=== PATIENT | male | born 1960 | race Caucasian/White ===

== ENCOUNTER 2017-03-10 12:38 | Day surgery (SDC) | payer OTHER ==
[~2017-03-10 12:38] MED LIST: Buffered Lidocaine 0.9% SYRIN* 5 ML/SYR SYRINGE INTRADERM ONE; Buffered Lidocaine 0.9% SYRIN* 5 ML/SYR SYRINGE ONE; Famotidine IV* 10 MG/ML 2 ML (20 mg) IV ONE; Famotidine IV* 10 MG/ML 2 ML (20 mg) ONE; Morphine INJ* 2 MG/ML 1 ML SYRINGE IV PRN; PROCHLORPERAZINE INJ 5 MG/ML 2 ML VIAL IV PRN; ceFAZolin 2 GM PREMIX(*) 2 GM/50 ML BAG IVPB ONE; fentaNYL* 50 MCG/ML 2 ML VIAL (100 MCG VIAL) IV PRN; oxyCODONE/Acetamin 5/325 MG* TAB PO PRN
[2017-03-10] MEDS ORDERED: KETAMINE HCL* 50 MG/ML 10 ML VIAL ONE ×2 (14:26→14:51)
[2017-03-10] MEDS ORDERED: fentaNYL* 50 MCG/ML 2 ML VIAL (100 MCG VIAL) ONE (14:26)
[2017-03-10] MEDS ORDERED: Midazolam* 1 MG/ML 5 ML VIAL (5 MG) ONE (14:27)
[2017-03-10] MEDS ORDERED: Bupivacaine 0.25% EPI 200,000* 30 ML SDV ONE (15:10)
[2017-03-10] MEDS ORDERED: Lidocaine 1% INJ* 10 MG/ML 30 ML SDV ONE (15:18)
[2017-03-10] MEDS ORDERED: Bupivacaine 0.5% W/EPI SDV* 10 ML VIAL INJ ONE (15:37)
[2017-03-10] MEDS ORDERED: Propofol* 10 MG/ML 20 ML BTL IV PUSH ONE (16:08)
[2017-03-10] MEDS ORDERED: Ketorolac INJ* 30 MG/ML 1 ML VIAL ONE (16:08)
[2017-03-10] MEDS ORDERED: Lidocaine 2% PF * 5 ML VIAL ONE (16:08)
--- NOTE | 2017-03-10 16:13 | SURGPN ---
Brief Operative Note - Surgery Procedures: Procedures OPERATIVE REPORT PRE-OP: Chronic pilonidal disease POST-OP: Same PROCEDURE: Incision and debridement of chronic pilonidal disease with placement of drains SURGEON: MD Jessi ANESTHESIA:Local with [facility] [place] ASST: ROBE Bain Student IVF: min EBL: min SPECIMEN: none DRAIN: none WOUND CLASS:4 COMPLICATIONS: none TO PACU
[2017-03-10 17:44] VITALS: BP 132/84
--- NOTE | 2017-03-11 06:28 | OP ---
CC: [facility] OPERATIVE REPORT: DATE OF OPERATION: 03/10/17 DATE OF : 64 SURGEON: Jordy Bowen MD ANESTHESIOLOGIST: Dr. Jackson. ANESTHESIA: Local with monitored anesthesia care. PRE-OP DIAGNOSIS: Chronic pilonidal disease. POST-OP DIAGNOSIS: Chronic pilonidal disease. OPERATIVE PROCEDURE: Excision and debridement of chronic pilonidal disease with drain placement. ESTIMATED BLOOD LOSS: Minimal. SPECIMENS: None. COMPLICATIONS: None. WOUND CLASSIFICATION: 3. BRIEF HISTORY: Mr. Jeronimo Kc is a 57-year-old gentleman with a history of mild tubular sclerosis who has had what appears to be pilonidal disease since a teenager. He has had intermittent drainages draining sinuses and abscesses, which he has treated himself. He has become more frustrated with his persistent symptoms and on exam, appears to have chronic pilonidal disease with midline pits in several sinus tracts extending to the left, right, and midline which persistently drained. At this point, discussion was had of possible more extensive excision of his pilonidal disease and he would like to try to avoid this at this point due to its prolonged recovery times. Today, we are going to take him to the operating room for an exam and identify the subcutaneous tracts and drain any abscesses and possibly place a drain and assess the extent of disease for consideration of more extensive surgery. The procedure was discussed with him and the risks were outlined in the preoperatively transcribed history and physical. DESCRIPTION OF PROCEDURE: Written informed consent was obtained and antibiotics were administered. The patient was taken to the operating room, placed in the prone position. Anesthesia was administered. The buttocks and lower back were prepped and draped in usual sterile fashion. Time-out verification was completed. On exam, there were several midline pits with some extremely scarring and induration and large midline pits in the lower cleft. There was a single sinus tract opening to the left of midline and a second one more right and inferiorly extending down towards the anus. When probing, these extended back to the midline through extensively scarred tissue. I did not appreciate any abscess nor there were any induration or was there any redness. However, the area was indurated and quite scarred. 0.25% Marcaine mixed with 1% lidocaine was infiltrated extensively in the area. We then used some hydrogen peroxide to inject into the midline pits and they did indeed collect with the sinus tracts. At this point, the extent of trying to excise this completely was decided not to proceed as we had discussed preoperatively. We then made a decision to pass blue vessel loops through the sinus tracts to the midline pits. These were sutured to create loops that will keep the tracts the open and prevent further infection until a more satisfactory surgical procedure can be discussed. Once this was done after placing 3 loops, the area was cleaned. Pressure dressing was applied. The patient tolerated the procedure well, was taken to the recovery room in stable condition. [id number]/[facility] #: [id number] ANGELA
== END 2017-03-10 17:44 | disposition home or self-care (01) ==
LOC: OR 12:38
PROVIDERS: ATTEND Surgery
DX: L05.91 Pilonidal cyst without abscess (principal); Z87.891 Personal history of nicotine dependence; G35 Multiple sclerosis
CPT/HCPCS: J0690; J1885; J2001; J2250; J2704; J3010

== ENCOUNTER 2019-10-24 08:37 | Emergency (ER) | payer BC ==
[2019-10-24 10:04] VITALS: BP 132/82
--- NOTE | 2019-10-24 10:15 | ED ---
Upper Extremity Pain - HPI Summary HPI Summary: Patient presents to the ED after falling off a ladder 5ft tall and landing over his left arm. Endorsing pain to the L elbow without bruising or swelling or other signs of trauma. Denies pain to the shoulder or the hand. Has been able to flex and extend at the elbow just prior to arrival and states his pain has been improving and his mobility has been improving since the fall. Denies numbness or tingling. He continues to endorse pain directly over the posterior upper arm and forearm. No cold feeling, discoloration. Pain is rated 2/10, took 2 ibuprofen prior to arrival. Denies hitting his head or other injuries. Ambulating well. Denies any other pain or concerns. - History of Current Complaint Chief Complaint: EDExtremityUpper Stated Complaint: FELL YESTERDAY/ARM INJURY PER PT Time Seen by Provider: 10/24/19 08:46 Hx Obtained From: Patient Mechanism Of Injury: Direct Blow Onset/Duration: Started Minutes Ago Timing: Constant Severity Initially: Mild Severity Currently: Mild Pain Location: Elbow Character: Aching Aggravating Factor(s): Movement, Lifting, Flexion, Extension Alleviating Factor(s): Rest Associated Signs & Symptoms: Negative: Swelling, Redness, Bruising, Numbness/ Tingling, Neck Pain, Diaphoresis, Nausea, Vomiting - Risk Factors Non-Orthopedic Risk Factor: Negative DVT Risk Factors: Negative Septic Arthritis Risk Factor: Negative Compartment Syndrome Risk Factors: Pain - Allergies/Home Medications Allergies/Adverse Reactions: Allergies Allergy/AdvReac Type Severity Reaction Status Date / Time No Known Allergies Allergy Verified 10/24/19 08:42 Home Medications: Home Medications Acetaminophen TAB* [Tylenol TAB*] 650 mg PO Q6H PRN #0 tab 11/15/15 [Rx Confirmed 10/24/19] Calcium Carbonate [Calcium] 1,200 mg PO DAILY 02/13/18 [History Confirmed ] Ibuprofen [Goodsense Ibuprofen] 400 tab PO Q6H PRN 02/13/18 [History Confirmed 10/24/19] Tamsulosin CAP* [Flomax CAP*] 0.4 mg PO BID 02/13/18 [History Confirmed 10/24/19 ] Donepezil TAB* [Aricept 5 MG TAB*] 5 mg PO DAILY 08/14/18 [History Confirmed 09/13] Oxybutynin XL TAB* [Ditropan XL TAB*] 5 mg PO BEDTIME 08/14/18 [History Confirmed 10/24/19] PMH/Surg Hx/FS Hx/Imm Hx Previously Healthy: Yes Endocrine/Hematology History: Denies: Hx Diabetes Cardiovascular History: Denies: Hx Hypertension, Hx Pacemaker/ICD History: Reports: Hx Kidney Infection - long time ago, Other Problems/ Disorders - BPH Denies: Hx Dialysis, Hx Renal Disease Sensory History: Reports: Hx Contacts or Glasses - both will wear glasses day of surgery, Hx Vision Problem Denies: Hx Hearing Aid Opthamlomology History: Reports: Hx Contacts or Glasses - both will wear glasses day of surgery, Hx Vision Problem Neurological History: Reports: Hx Dementia, Other Neuro Impairments/Disorders - MS Psychiatric History: Denies: Hx Panic Disorder - Cancer History Hx Chemotherapy: No - Surgical History Surgery Procedure, Year, and Place: RIGHT foot fx repair. 03/10/17 PILONIDAL CYSTS REMOVED-PT STILL HAS DRAINAGE TUBES Hx Anesthesia Reactions: No - Immunization History Hx Pertussis Vaccination: No Immunizations Up to Date: Yes Infectious Disease History: Yes Infectious Disease History: Denies: Traveled Outside the [place] in Last 30 Days - Family History Known Family History: Positive: None - reviewed & noncontributory - Social History Occupation: Employed Full-time Lives: With Family Alcohol Use: Rare Hx Substance Use: No Substance Use Type: Reports: None Hx Tobacco Use: No Smoking Status (MU): Former Smoker Amount Used/How Often: smoked for on and off for 10 years, 1 cigarette a day Have You Smoked in the Last Year: No Review of Systems Negative: Fever, Chills, Fatigue, Skin Diaphoresis Negative: Epistaxis, Dental Pain Negative: Palpitations, Chest Pain Positive: Arthralgia - left elbow pain Skin: Negative Positive: Headache All Other Systems Reviewed And Are Negative: Yes Physical Exam Triage Information Reviewed: Yes Vital Signs On Initial Exam: Initial Vitals Temp Pulse Resp BP Pulse Ox 98.0 F 68 18 129/95 98 10/24/19 08:37 10/24/19 08:37 10/24/19 08:37 10/24/19 08:37 10/24/19 08:37 Vital Signs Reviewed: Yes Appearance: Positive: Well-Appearing, Well-Nourished Skin: Positive: Warm, Skin Color Reflects Adequate Perfusion Head/Face: Positive: Normal Head/Face Inspection Eyes: Positive: EOMI, JOSHUA, Conjunctiva Clear Neck: Positive: Supple, No Lymphadenopathy Respiratory/Lung Sounds: Positive: Clear to Auscultation, Breath Sounds Present Musculoskeletal: Positive: Strength/ROM Intact Neurological: Positive: Speech Normal Psychiatric: Positive: Normal, Affect/Mood Appropriate AVPU Assessment: Alert Procedures - Sedation Patient Received Moderate/Deep Sedation with Procedure: No Diagnostics - Vital Signs Vital Signs Temp Pulse Resp BP Pulse Ox 10/24/19 08:37 98.0 F 68 18 129/95 98 - Laboratory Lab Statement: Any lab studies that have been ordered have been reviewed, and results considered in the medical decision making process. Course/Dx - Course Course Of Treatment: This patient is evaluated for left elbow pain after fall from approximately 5 feet from a ladder in his home. He states he landed directly over to the left arm and denies any other pain or concerns. He denies hitting his head or LOC. Fall was witnessed by . He came to the ED as he was unable to extend at the elbow due to pain. On arrival to the ED, he is able to flex and extend at the elbow, however with some amount of discomfort but especially to the posterior upper arm just proximal to the elbow. No pain on palpation to the forearm or to the hand. Good community organization aide strength throughout. No ecchymosis, erythema, discoloration or temperature changes. Pulses +2 intact bilaterally. Good cap refill. Patient is able to flex and extend at the elbow as well as abduct and adduct shoulder. No pain otherwise, no bruising. Patient appears well. X-ray of the elbow obtained which shows no acute findings or processes. Discussed findings with the patient. He will return to the ED if he develops any worsening or changing symptoms. - Diagnoses Differential Diagnosis/HQI/PQRI: Positive: Fracture (Closed), Strain, Sprain Provider Diagnoses: Left elbow contusion Discharge ED - Sign-Out/Discharge Documenting (check all that apply): Patient Departure - Discharge Plan Condition: Stable Disposition: HOME Patient Education Materials: Contusion in Adults (ED) Referrals: Jem MCCLELLAN,Kenny Castrejon [Primary Care Provider] - Additional Instructions: Ibuprofen 600mg three times daily Ice and heat to the area today Tomorrow, only heat Continue to flex and extend at the elbow to prevent any stiffness - Billing Disposition and Condition Condition: STABLE Disposition: Home - Attestation Statements Provider Attestation: I was available for consult. This patient was seen by the JOVANNY. The patient was not presented to, seen by, or examined by me. Nick Hendrix MD
== END 2019-10-24 10:04 | disposition home or self-care (01) ==
LOC: ED 08:37
DX: S50.02XA Contusion of left elbow, initial encounter (principal); W11.XXXA Fall on and from ladder, initial encounter; Y92.009 Unspecified place in unspecified non-institutional (private) residence as the place of occurrence of the external cause; N40.0 Benign prostatic hyperplasia without lower urinary tract symptoms; F03.90 Unspecified dementia, unspecified severity, without behavioral disturbance, psychotic disturbance, mood disturbance, and anxiety; Z87.891 Personal history of nicotine dependence; Z79.899 Other long term (current) drug therapy
CPT/HCPCS: 99282